=== PATIENT | male | born 1975 | race Caucasian/White ===

== ENCOUNTER 2019-12-26 05:45 | Inpatient (IN) | payer BC, OTHER ==
[~2019-12-26] VITALS: Ht 170.2 cm; Wt 81.2 kg
--- OUTSIDE RECORDS SUMMARY | 2019-12-26 05:48 | XMS REPORT ---
Author Author [facility] Organization [facility] Address Unknown Phone Unavailable Care Team Providers Care Costume Rental Clerk Name Role Phone Faisal Leong Unavailable Unavailable Problems This patient has no known problems. Allergies, Adverse Reactions, Alerts This patient has no known allergies or adverse reactions. Medications This patient has no known medications. Results Test Description Test Time Test Comments Text Results Atomic Results Result Comments Chest Pa And Lat (2 Views) 2018-06-07 13:24:00 [address] [place] [address] RADIOLOGY SERVICES REPORT Name: MARILYNN BRUNO Acct Number: [id number] :1975 Age:42 Sex:M Ord Phys: VIVEK LEONG Unit Number: [id number] [facility] [facility] [address]: Status: REG REF RAD Exam Date: 06/07/18 EXAM DESCRIPTION: RAD - Chest Pa And Lat (2 Views) - 06/07/2018 1:19 pm CLINICAL HISTORY: R06.2 Chest pain. COMPARISON: No comparisons FINDINGS: The lungs are clear. The heart is normal in size. No displaced fractures. IMPRESSION: No acute or concerning finding suspected. Signed By: Orlando Almanza MD Signed AT: 06/07/18 9019
[2019-12-26] MEDS ORDERED: ONDANSETRON HCL INJ 2MG/ML 2ML 2 MG/ML VIAL IV STA (05:54)
[2019-12-26] MEDS ORDERED: KETOROLAC TROMETHAMINE 30 MG/ML VIAL IV STA (05:54)
[2019-12-26 06:20] LABS: BASOPHILS # (AUTO) 0.1 (0.0-0.1); BASOPHILS % 0.3 % (0.0-1.0); EOSINOPHILS # (AUTO) 0.2 (0.0-0.4); EOSINOPHILS % 1.1 % (0.0-6.0); HEMATOCRIT 44.4 % (38.2-49.6); HEMOGLOBIN 15.2 g/dL (14.0-18.0); LYMPHOCYTES # (AUTO) 2.5 (1.0-3.2); LYMPHOCYTES % 13.3 % (18.0-39.1); MEAN CORPUSCULAR HEMOGLOBIN 32.8 pg (28-32); MEAN CORPUSCULAR HGB CONC 34.2 g/dL (31-35); MEAN CORPUSCULAR VOLUME 95.7 fL (81-99); MONOCYTES # (AUTO) 2.4 (0.2-0.8); MONOCYTES % 12.8 % (4.4-11.3); NEUTROPHILS # (AUTO) 13.3 (2.1-6.9); NEUTROPHILS % 71.6 % (38.7-80.0); PLATELET COUNT 252 x10e3/uL (140-360); RED BLOOD COUNT 4.64 x10e6/uL (4.3-5.7); RED CELL DISTRIBUTION WIDTH 12.4 % (11.7-14.4)
--- NOTE | 2019-12-26 06:33 | Diagnostic Imaging Report ---
EXAM: CT Abdomen and Pelvis WITHOUT contrast INDICATION: ^LEFT FLANK PAIN STONE PROTOCOL ^[id number] ^[id number] ^Y COMPARISON: None. TECHNIQUE: Abdomen and pelvis were scanned utilizing a multidetector helical scanner from the lung base to the pubic symphysis without administration of IV contrast. Absence of intravenous contrast decreases sensitivity for detection of focal lesions and vascular pathology. Coronal and sagittal reformations were obtained. Stone protocol is performed. IV CONTRAST: None ORAL CONTRAST: None COMPLICATIONS: None RADIATION DOSE: Total DLP: 370 mGy*cm Estimated effective dose: (DLP x 0.015 x size factor) mSv CTDIvol has been reviewed. It is below the limits set by the Radiation Protocol Committee (RPC). Dose modulation, iterative reconstruction, and/or weight based adjustment of the mA/kV was utilized to reduce the radiation dose to as low as reasonably achievable. FINDINGS: LINES and TUBES: None. LOWER THORAX: Unremarkable HEPATOBILIARY: Subtle 2.2 cm hypodense lesion of the right hepatic lobe (image 43). Too small to characterize 7 mm hypodense lesion of the right inferior hepatic lobe, likely a cyst. GALLBLADDER: No radio-opaque stones or sludge. No wall thickening. SPLEEN: No splenomegaly. PANCREAS: No focal masses or ductal dilatation. ADRENALS: No adrenal nodules KIDNEYS/URETERS: Few nonobstructing right intrarenal calculi, largest 4 mm. No right hydronephrosis. Moderate left renal edema and left perinephric inflammation. Mild left hydronephrosis. 4 mm stone within the left distal ureter (image 159). GI TRACT: No abnormal distention, wall thickening, or evidence of bowel obstruction. Colonic diverticulosis. Appendix is normal. PELVIC ORGANS/BLADDER: Unremarkable. LYMPH NODES: No lymphadenopathy. VESSELS: Unremarkable. PERITONEUM / RETROPERITONEUM: No free air or fluid. BONES: Unremarkable. SOFT TISSUES: Small bilateral fat-containing inguinal hernias. IMPRESSION: 1. Obstructing 4 mm stone within the left distal ureter results in mild left hydronephrosis and moderate left perinephric inflammation. 2. Few small nonobstructing right intrarenal calculi, largest 4 mm. 3. Incidental 2.2 cm hypodense solid lesion within the right hepatic lobe. This most likely represents a hemangioma or other benign lesion; however, it is incompletely characterized on this noncontrast examination. Signed by: Rafi Olmos MD on 12/26/2019 6:29 AM
[2019-12-26 06:35] LABS: ANION GAP 11.1 mmol/L (8-16); BLOOD UREA NITROGEN 15 mg/dL (7-26); BUN/CREATININE RATIO 14 (6-25); CALCIUM 9.1 mg/dL (8.4-10.2); CARBON DIOXIDE 26 mmol/L (22-29); CHLORIDE 106 mmol/L (98-107); EST GLOMERULAR FILTRATION RATE > 60 ML/MIN (60-); GLUCOSE 95 mg/dL (74-118); POTASSIUM 4.1 mmol/L (3.5-5.1); SODIUM 139 mmol/L (136-145)
[2019-12-26 06:39] LABS: BILIRUBIN,URINE NEGATIVE (NEGATIVE); CLARITY,URINE CLEAR (CLEAR); COLOR,URINE YELLOW (YELLOW); KETONES,URINE NEGATIVE (NEGATIVE); LEUKOCYTE ESTERASE ,URINE NEGATIVE (NEGATIVE); NITRITE,URINE NEGATIVE (NEGATIVE); PROTEIN,URINE DIPSTICK NEGATIVE (NEGATIVE); URINE UROBILINOGEN 0.2 mg/dL (0.2 - 1)
[2019-12-26 06:42] LABS: BACTERIA,URINE FEW /HPF; EPITHELIAL CELLS,URINE RARE /LPF; RBC,URINE >50 /HPF (0-5); WBC,URINE (MAN) 0-5 /HPF (0-5)
[2019-12-26] MEDS ORDERED: CEFTRIAXONE SOD 1 GM/NS 50 ML 50 ML IV ONE ×2 (06:42→06:45)
[2019-12-26] MEDS ORDERED: ONDANSETRON HCL INJ 2MG/ML 2ML 2 MG/ML VIAL IV PRN (06:45)
[2019-12-26] MEDS: CEFTRIAXONE SOD 1 GM/NS 50 ML 50 ML IV SCH (07:37)
[2019-12-26] MEDS: HYDROMORPHONE 1MG/1ML INJ IV PRN ×6 (07:50→23:48)
[2019-12-26 08:27] LABS: EOSINOPHILS % (MANUAL) 1 % (0-7); LYMPHOCYTES % (MANUAL) 14 % (19-48); MONOCYTES % (MANUAL) 16 % (3.4-9.0); NEUTROPHILS % (MANUAL) 61 % (40-74)
[2019-12-26 08:28] LABS: PLATELET ESTIMATE ADEQUATE; PLATELET MORPHOLOGY COMMENT NORMAL; RBC MORPHOLOGY COMMENT NORMAL
[2019-12-26 08:54] VITALS: BP 121/85
[2019-12-26] MEDS: SENNOSIDES 8.6 MG TAB PO SCH ×2 (10:15→16:03)
[2019-12-26] MEDS: SODIUM CHLORIDE 0.9% 1000ML 1,000 ML IV SCH ×2 (10:46→20:24)
--- NOTE | 2019-12-26 11:30 | History and Physical ---
CHIEF COMPLAINT: Left flank pain with left renal stone. HISTORY OF PRESENT ILLNESS: The patient is a 44-year-old male, never had any significant medical history or kidney stone, came in with obstructive 4 mm stone within the left distal ureter and resulted in mild left hydronephrosis, moderate left perinephric inflammation area. The patient also has leukocytosis of 18,000. On CT scan, the patient also has a few small nonobstructive right intrarenal calculi, largest of 4 mm as well. Incidentally finding of 2.2 cm hypodense solid lesion within the right hepatic lobe. This could be from hemangioma or other benign lesion. The patient had a noncontrast CT. I told patient that he will need either a contrast CT scan Abdomen or MRI to further evaluate this lesion once his current problem resolved to prevent risk of renal failure or injury from IV contrst. Therefore, patient will need to follow up later with his PCP. The patient is otherwise stable. Discussed with the patient at this time. He is going to get fluid IV antibiotic and pain control. Dr. Ángel Talbot already seen the patient. PAST MEDICAL HISTORY: Noncontributory. SOCIAL HISTORY: The patient is a [id number] smoker. He is also a moderate alcohol drinker. ALLERGIES: NO KNOWN ALLERGIES. HOME MEDICATIONS: None. PHYSICAL EXAMINATION: VITAL SIGNS: Temperature is 98, blood pressure is 139/102, pulse rate is 65, respirations 18. GENERAL: The patient is not in acute distress. He is awake. HEENT: Normocephalic and atraumatic. Anicteric. NECK: Supple grossly. PULMONARY: Clear. CARDIOVASCULAR: Regular rate and rhythm. ABDOMEN: Soft. EXTREMITIES: No cyanosis or edema. NEUROLOGIC: No gross focal deficit. LABORATORY DATA: Sodium is 139, potassium 4.1, chloride 106, bicarb 26, BUN 15, creatinine 1.1, glucose 95. WBC is 18.6, hemoglobin 15.2, hematocrit 44.4, and platelets is 252. IMPRESSION: 1. Left hydronephrosis with left perinephric inflammation secondary to obstructive 4 mm ureteral stone. 2. Leukocytosis, reactive. 3. Incidental finding of 2.2 cm right lower liver solid lesion on noncontrast CT. The patient will need to have that follow up as an outpatient. Discussed with the patient. We will monitor the patient closely. IV antibiotics. Discussed with patient closely. IV antibiotic and IV fluid pain control. We will follow up with Dr. Ángel Talbot on planning for this patient with obstructive kidney stone. MD NORMAN Macedo/GAIL /[id number] MISHA
[2019-12-26 11:44] VITALS: BP 134/91
[2019-12-26] MEDS ORDERED: ONDANSETRON HCL INJ 2MG/ML 2ML 2 MG/ML VIAL ONE (14:47)
[2019-12-26] MEDS ORDERED: LIDOCAINE HCL 2% LOCAL INJ 5 ML SDV VIAL INJ ONE (14:47)
[2019-12-26] MEDS ORDERED: DEXAMETHASONE SOD PHOS INJ 4 MG/ML VIAL ONE (14:47)
[2019-12-26] MEDS ORDERED: SEVOFLURANE INHAL SOLN 250 ML PEN BTL ONE (14:47)
[2019-12-26] MEDS ORDERED: PROPOFOL IV EMULSION 10 MG/ML 20 ML VIAL ONE (14:47)
[2019-12-26] MEDS: HYDROCODONE/APAP 7.5MG-325MG 1 EA TAB PO PRN (15:00)
[2019-12-26 16:00] VITALS: BP 123/86
[2019-12-26] MEDS: KETOROLAC TROMETHAMINE 30 MG/ML VIAL IV PRN (18:15)
[2019-12-26 20:00] VITALS: BP 120/81
[2019-12-27] VITALS (9 sets, daily range): BP systolic 111–141; BP diastolic 60–78
[2019-12-27] MEDS: HYDROMORPHONE 1MG/1ML INJ IV PRN ×7 (02:56→21:53)
[2019-12-27] MEDS: KETOROLAC TROMETHAMINE 30 MG/ML VIAL IV PRN ×3 (03:29→17:53)
[2019-12-27 06:19] LABS: BASOPHILS % 0.2 % (0.0-1.0); EOSINOPHILS # (AUTO) 0.1 (0.0-0.4); EOSINOPHILS % 1.1 % (0.0-6.0); HEMATOCRIT 36.6 % (38.2-49.6); HEMOGLOBIN 12.1 g/dL (14.0-18.0); LYMPHOCYTES # (AUTO) 3.5 (1.0-3.2); LYMPHOCYTES % 28.3 % (18.0-39.1); MEAN CORPUSCULAR HGB CONC 33.1 g/dL (31-35); MEAN CORPUSCULAR VOLUME 96.8 fL (81-99); MONOCYTES # (AUTO) 1.9 (0.2-0.8); MONOCYTES % 15.7 % (4.4-11.3); NEUTROPHILS # (AUTO) 6.6 (2.1-6.9); NEUTROPHILS % 54.1 % (38.7-80.0); PLATELET COUNT 180 x10e3/uL (140-360); RED BLOOD COUNT 3.78 x10e6/uL (4.3-5.7); RED CELL DISTRIBUTION WIDTH 12.4 % (11.7-14.4)
[2019-12-27] MEDS: CEFTRIAXONE SOD 1 GM/NS 50 ML 50 ML IV SCH (06:39)
[2019-12-27] MEDS: SODIUM CHLORIDE 0.9% 1000ML 1,000 ML IV SCH ×2 (06:39→16:52)
[2019-12-27 06:42] LABS: ANION GAP 7.3 mmol/L (8-16); BLOOD UREA NITROGEN 12 mg/dL (7-26); BUN/CREATININE RATIO 15 (6-25); CARBON DIOXIDE 25 mmol/L (22-29); CHLORIDE 109 mmol/L (98-107); CREATININE, SERUM 0.82 mg/dL (0.72-1.25); EST GLOMERULAR FILTRATION RATE > 60 ML/MIN (60-); GLUCOSE 89 mg/dL (74-118); POTASSIUM 4.3 mmol/L (3.5-5.1); SODIUM 137 mmol/L (136-145)
[2019-12-27] MEDS: HYDROCODONE/APAP 7.5MG-325MG 1 EA TAB PO PRN ×4 (07:55→19:55)
[2019-12-27] MEDS: SENNOSIDES 8.6 MG TAB PO SCH ×2 (08:03→16:52)
--- NOTE | 2019-12-27 09:59 | Consultation ---
DATE OF CONSULTATION: 12/26/2019 Urology Consultation Consultation is called by Dr. Singh. CHIEF COMPLAINT AND REASON FOR CONSULTATION: Kidney stones. HISTORY OF PRESENT ILLNESS: Mr. Alarcon is a 44-year-old male, admitted to hospital with sharp, severe left-sided flank pain. Denied dysuria. Denied gross hematuria. PAST MEDICAL HISTORY: Denied. MEDICATIONS: Please see MAR. ALLERGIES: NKDA. SOCIAL HISTORY: Denied smoking or drinking. FAMILY HISTORY: Denied urologic stones or malignancies. REVIEW OF SYSTEMS: Noncontributory other than problems mentioned above for 12-organ systems. PHYSICAL EXAMINATION: GENERAL: Middle-aged male, in no distress. VITAL SIGNS: Temperature 98.1, pulse 69, respirations 17, and blood pressure 161/101. HEENT: Sclerae anicteric. NECK: Supple. BACK: Without costovertebral angle tenderness bilaterally. ABDOMEN: Soft, it is nontender, it is nondistended. No palpable mass. No palpable hernias. No palpable adenopathy. : Normal male external genitalia. EXTREMITIES: No edema. NEURO: Moves all 4 extremities. PSYCH: Alert and mood appropriate. SKIN: Intact. Normal color. PERTINENT LABORATORY DATA: CT scan revealing a 4 mm left distal ureteral calculus with left hydronephrosis, multiple right renal calculi less than equal to 4 mm. 2.27 cm liver mass. Urinalysis greater than 50 reds, 0 to 5 whites. CBC; normal except white blood cell count 19,600. Chem-7 revealing sodium 139, potassium 4.1, chloride 106, bicarb 26, BUN 15, creatinine 1.1, glucose 95. IMPRESSION: 1. Left hydronephrosis. 2. Left ureteral calculus. 3. Right renal calculus. 4. Microscopic hematuria. 5. Renal colic. 6. Hypertension. 7. Leukocytosis. PLAN: We will employ a trial of passage. Should this fail, the patient will need stenting. Thank you for allowing me to participate in the care of your patient. We will be happy to follow along with you. Ángel Talbot MD ES/MODL /[id number] cc: Parag Singh MD
--- NOTE | 2019-12-27 15:57 | Diagnostic Imaging Report ---
EXAM: ABDOMEN-1VIEW (KUB) DATE: 12/27/2019 3:20 PM INDICATION: Kidney stone COMPARISON: CT abdomen/pelvis without contrast from 12/26/2019 FINDINGS/IMPRESSION: Bowel gas partially obscures the renal shadows limiting evaluation. No radiographically evident renal calculi are visualized. Phleboliths are noted within the pelvis with a 4 mm calcification identified within the left hemipelvis which may represent the known distal left ureteral stone. No other abnormal intra-abdominal calcifications are appreciated. Bowel gas pattern is nonobstructive. No acute osseous abnormality is identified. Signed by: Dr. Bertrand Nixon MD on 12/27/2019 3:54 PM
[2019-12-28] VITALS (7 sets, daily range): BP systolic 107–141; BP diastolic 66–90
[2019-12-28] MEDS: HYDROCODONE/APAP 7.5MG-325MG 1 EA TAB PO PRN ×4 (00:13→18:33)
[2019-12-28] MEDS: HYDROMORPHONE 1MG/1ML INJ IV PRN ×8 (01:10→22:48)
[2019-12-28] MEDS: KETOROLAC TROMETHAMINE 30 MG/ML VIAL IV PRN ×3 (03:48→20:11)
[2019-12-28] MEDS: SODIUM CHLORIDE 0.9% 1000ML 1,000 ML IV SCH ×2 (04:40→14:16)
[2019-12-28] MEDS: CEFTRIAXONE SOD 1 GM/NS 50 ML 50 ML IV SCH (05:22)
[2019-12-28] MEDS ORDERED: IOPAMIDOL 300MG/ML 50ML INFUS..BTL IV ONE (07:54)
[2019-12-28] MEDS: SENNOSIDES 8.6 MG TAB PO SCH ×2 (08:44→16:44)
--- NOTE | 2019-12-28 10:35 | Diagnostic Imaging Report ---
Exam: KUB - 2 views Indication: Urinary calculus Comparison: KUB of 12/27/2019 Findings: No radiographic apparent urinary calculi. Specifically, the calcific density adjacent to a left pelvic phlebolith seen on prior KUB of 12/27/2019 and believed to correspond to the distal ureteral calculus seen on the CT of 12/26/2019 is not apparent on these radiographs. No acute osseous injury. Nonobstructive bowel gas pattern. No free air. Impression: Likely interval resolution of left distal ureteral calculus which is no longer visualized on this radiograph compared to the KUB of 12/27/[address] of 12/26/2019. No new radiographically apparent urinary calculi. Signed by: Phoenix Nevarez MD on 12/28/2019 10:32 AM
[2019-12-29] VITALS (8 sets, daily range): BP systolic 123–150; BP diastolic 60–94
[2019-12-29] MEDS: SODIUM CHLORIDE 0.9% 1000ML 1,000 ML IV SCH ×3 (02:33→21:00)
[2019-12-29] MEDS: HYDROMORPHONE 1MG/1ML INJ IV PRN ×7 (02:33→23:49)
[2019-12-29] MEDS: CEFTRIAXONE SOD 1 GM/NS 50 ML 50 ML IV SCH (05:55)
[2019-12-29] MEDS: HYDROCODONE/APAP 7.5MG-325MG 1 EA TAB PO PRN ×5 (07:34→22:40)
[2019-12-29] MEDS: SENNOSIDES 8.6 MG TAB PO SCH ×2 (08:05→16:54)
[2019-12-29] MEDS ORDERED: ONDANSETRON HCL 4 MG ORAL DISINTEGRATING TAB PO PRN (16:15)
[2019-12-29] MEDS: KETOROLAC TROMETHAMINE 30 MG/ML VIAL IV PRN ×3 (17:38→22:40)
[2019-12-30] VITALS: BP 152/90
--- NOTE | 2019-12-30 03:06 | Discharge Summary ---
FINAL DIAGNOSES: 1. Left hydronephrosis secondary to non-passing ureteral stone, status post left ureteral stent placement. 2. Gross hematuria, urinary tract infection, improving post stent placement. 3. Incidental lesion lesion. Need outpatient follow up. Discussed with patient at length. SUMMARY: The patient 44-year-old male, came in with flank pain. The patient's CT scan showed left hydronephrosis with 4 mm stone and the patient failed conservative measure with hoping that the stone will pass, which did not. The patient also with elevated WBC of 18.6,000. The patient underwent cystoscopy and a left urethral stent placement. The patient has some hematuria, but much improved. The patient will continue with oral antibiotic, Tylenol No. 3, Zofran as needed. Cipro 5 mg twice a day for 5 days. The patient is otherwise stable. He will go home today. Follow up as an outpatient for any further adjustment of his medication. The patient will need stone management and ureteral stent removal when appropriate. I advised the patient to follow up as instructed. Patient will also need follow up IV contrast CT scan abdomen or MRI to evaluate liver lesion outpatient as discussed with patient multiple times. Please see H/P. MD NORMAN Macedo/GAIL /[id number] MTDD
[2019-12-30 04:00] VITALS: BP 132/88
[2019-12-30] MEDS: HYDROMORPHONE 1MG/1ML INJ IV PRN (04:30)
[2019-12-30] MEDS: KETOROLAC TROMETHAMINE 30 MG/ML VIAL IV PRN (04:40)
[2019-12-30] MEDS: SODIUM CHLORIDE 0.9% 1000ML 1,000 ML IV SCH (05:38)
[2019-12-30 05:52] LABS: BASOPHILS # (AUTO) 0.1 (0.0-0.1); BASOPHILS % 0.6 % (0.0-1.0); EOSINOPHILS # (AUTO) 0.3 (0.0-0.4); EOSINOPHILS % 2.2 % (0.0-6.0); HEMATOCRIT 37.5 % (38.2-49.6); HEMOGLOBIN 12.5 g/dL (14.0-18.0); LYMPHOCYTES # (AUTO) 4.9 (1.0-3.2); LYMPHOCYTES % 42.3 % (18.0-39.1); MEAN CORPUSCULAR HEMOGLOBIN 31.6 pg (28-32); MEAN CORPUSCULAR HGB CONC 33.3 g/dL (31-35); MEAN CORPUSCULAR VOLUME 94.9 fL (81-99); MONOCYTES # (AUTO) 1.5 (0.2-0.8); MONOCYTES % 12.8 % (4.4-11.3); NEUTROPHILS # (AUTO) 4.9 (2.1-6.9); NEUTROPHILS % 41.5 % (38.7-80.0); PLATELET COUNT 237 x10e3/uL (140-360); RED BLOOD COUNT 3.95 x10e6/uL (4.3-5.7); RED CELL DISTRIBUTION WIDTH 11.8 % (11.7-14.4)
[2019-12-30] MEDS: CEFTRIAXONE SOD 1 GM/NS 50 ML 50 ML IV SCH (06:21)
[2019-12-30 06:25] LABS: ANION GAP 9.2 mmol/L (8-16); BLOOD UREA NITROGEN 13 mg/dL (7-26); BUN/CREATININE RATIO 18 (6-25); CALCIUM 8.7 mg/dL (8.4-10.2); CARBON DIOXIDE 27 mmol/L (22-29); CHLORIDE 109 mmol/L (98-107); CREATININE, SERUM 0.72 mg/dL (0.72-1.25); EST GLOMERULAR FILTRATION RATE > 60 ML/MIN (60-); GLUCOSE 87 mg/dL (74-118); POTASSIUM 4.2 mmol/L (3.5-5.1); SODIUM 141 mmol/L (136-145)
[2019-12-30 08:00] VITALS: BP 147/94
[2019-12-30] MEDS: HYDROCODONE/APAP 7.5MG-325MG 1 EA TAB PO PRN (08:11)
[2019-12-30] MEDS: SENNOSIDES 8.6 MG TAB PO SCH (08:12)
[2019-12-30 08:13] VITALS: BP 147/94
--- NOTE | 2019-12-30 12:53 | Operative Report ---
DATE OF PROCEDURE: 12/28/2019 SURGEON: Ángel Talbot MD PREOPERATIVE DIAGNOSES: 1. Left-sided hydronephrosis. 2. Microscopic hematuria. POSTOPERATIVE DIAGNOSES: 1. Left-sided hydronephrosis. 2. Microscopic hematuria. PROCEDURES: 1. Cystourethroscopy with left ureteral catheterization and placement of an indwelling left ureteral stent (entirely separate procedure for left hydronephrosis). 2. Cystourethroscopy with right ureteral catheterization and right retrograde pyelogram (separate procedure for microscopic hematuria). 3. Supervision of fluoroscopy. 4. Interpretation of retrograde pyelography. ANESTHESIA: General. ESTIMATED BLOOD LOSS: Minimal. COMPLICATIONS: None. INDICATIONS: Mr. Alarcon is a very pleasant 44-year-old male with a history of a 4 mm x 4 mm left ureteral calculus. The patient has elevated white count, despite antibiotics it did not come down. He and I had a long discussion about alternatives, risks, and benefits including doing nothing, stent placement, and percutaneous nephrostomy. He voiced understanding of the options, alternatives, risks, and benefits and elected to proceed. PROCEDURE IN DETAIL: After informed consent was obtained, the patient was taken to the operative suite, placed supine on the operative table, underwent general anesthesia by Anesthesia Service, placed in dorsal lithotomy position and sterilely prepped and draped for cystoscopy. A 21-Thai cystoscope was inserted per urethra and normal urethra was noted. Panendoscopy of bladder revealed no tumors, no stones. The right ureteral orifice was seen to efflux urine. Bilateral retrograde pyelograms performed with a 5-Thai open-ended catheter. Right was normal. Left revealed a 4 x 4 mm distal ureteral calculus with proximal hydronephrosis. Upon inserting a guidewire alongside the stone, plethora reported and material shot out the ureteral orifice, seen on image #2. A ureteral stent was then deployed with a coil in the renal pelvis and a coil in the patient's bladder. Purulent material continue to jetting out of the stent. The bladder was then drained. The patient was awakened from anesthesia and transported to recovery room in excellent condition. Supervision of fluoroscopy and interpretation of retrograde pyelography: I was present for the entire procedure and supervised fluoroscopy. There was no radiologist present. Attention was turned to the left and right ureteral orifice, which have catheterized with a 5-Thai open-ended catheter. Retrograde pyelogram was performed on the right side revealing delicate ureter, delicate pelvocaliceal systems. On left side, a 4 x 4 distal ureteral calculus with proximal hydronephrosis. Postoperative views on left side revealed stent in adequate position. MD MAME Song/GAIL /[id number]
== END 2019-12-30 10:18 | disposition home or self-care (01) | DRG 661 ==
LOC: ER 05:45 → ERHOLD 06:43 → MED/SURG 08:48 → OBSVTOIN 12-27 09:07
PROVIDERS: ADMIT Internal Medicine; ATTEND Internal Medicine
PROC: 0TC78ZZ Extirpation of Matter from Left Ureter, Via Natural or Artificial Opening Endoscopic (ICD-10-PCS; 2019-12-28)
PROC: BT141ZZ Fluoroscopy of Kidneys, Ureters and Bladder using Low Osmolar Contrast (ICD-10-PCS; 2019-12-28)
PROC: 0T778DZ Dilation of Left Ureter with Intraluminal Device, Via Natural or Artificial Opening Endoscopic (ICD-10-PCS; principal; 2019-12-28 08:00)
DX: N13.6 Pyonephrosis (principal); K76.9 Liver disease, unspecified; I10 Essential (primary) hypertension; D64.9 Anemia, unspecified; D72.829 Elevated white blood cell count, unspecified
CPT/HCPCS: 36415; 74018; 74176; 74420; 80048; 81001; 85025; 87086; 87635; 96360; 96361; 99284; C1758; C1769; C2617; G0378; J0696; J1100; J1170; J1885; J2001; J2405; J7030

== ENCOUNTER → 2020-01-13 | Day surgery (SDC) | payer BC, OTHER ==
[~2020-01-13] MED LIST: CEFTRIAXONE SOD 1 GM/NS 50 ML 50 ML IV ONE; DEXAMETHASONE SOD PHOS INJ 4 MG/ML VIAL ONE; ETOMIDATE 2 MG/ML 10 ML INJ IV ONE; FENTANYL CITRATE/PF 100MCG/2 ML INJ ONE; IOPAMIDOL 300MG/ML 50ML INFUS..BTL IV ONE; LIDOCAINE HCL 2% LOCAL INJ 5 ML SDV VIAL INJ ONE; ONDANSETRON HCL INJ 2MG/ML 2ML 2 MG/ML VIAL ONE; RITALIN10 MG PO; SEVOFLURANE INHAL SOLN 250 ML PEN BTL ONE
[2020-01-13 10:30] VITALS: BP 145/95
--- NOTE | 2020-01-13 13:38 | Operative Report ---
DATE OF PROCEDURE: 01/13/2020 SURGEON: Ángel Talbot MD PREOPERATIVE DIAGNOSES: 1. Indwelling left ureteral stent. 2. Left ureteral calculus. POSTOPERATIVE DIAGNOSES: 1. Indwelling left ureteral stent. 2. Left ureteral calculus. PROCEDURES: 1. Cystourethroscopy with complicated removal of left indwelling stent (entirely separate procedure complicated secondary to the patient anatomy.). 2. Left-sided ureteroscopy with laser lithotripsy (entirely separate procedure for diagnosis of left ureteral calculus.). 3. Left-sided ureteroscopy with stone extraction (entirely separate procedure with explicit purpose of sending stones for analysis, not required for laser lithotripsy). 4. Supervision of fluoroscopy for ureteroscopy and stent removal. ANESTHESIA: General. ESTIMATED BLOOD LOSS: Minimal. COMPLICATIONS: None. INDICATIONS FOR PROCEDURE: Mr. Alarcon is a very pleasant 44-year-old male with a history of obstructing left ureteral calculus, status post stent placement. He and I had a long discussion of alternatives, risks, and benefits of doing nothing, shock wave lithotripsy, ureteroscopy, percutaneous surgery, or open surgery. He voiced understanding of the options, alternatives, the risks, and benefits. He elected to proceed with ureteroscopy. PROCEDURE IN DETAIL: After informed consent was obtained, the patient was taken to the operative suite, placed supine on the operating table, underwent general anesthesia by the Anesthesia Service, placed in dorsal lithotomy position, and sterilely prepped and draped for cystoscopy. There was trilobar prostatic hypertrophy. Stent was seen in the left ureteral orifice. The guidewire was inserted alongside the stent. Stent was removed with moderate difficulty secondary to obstruction of stone. Ureteroscope was advanced to the level of stone. Utilizing 365 micron laser fiber, the stone was broken in multiple small fragments, several of which were extracted and passed off the table as specimens with explicit purpose of sending stones for analysis, not required for laser lithotripsy. At this time with no other stones seen under fluoroscopic survey, bladder was drained. The patient was awakened from anesthesia and transported to recovery room in excellent condition. Supervision of fluoroscopy for ureteroscopy and stent removal portions: I was present for the entire procedure and supervised fluoroscopy. There was no radiologist present. Dosage per supply chain technician. MD MAME Song/CAESARL /[id number]
== END | disposition home or self-care (01) ==
LOC: OR 07:35
PROVIDERS: ATTEND Urology
DX: N20.1 Calculus of ureter (principal); Z46.6 Encounter for fitting and adjustment of urinary device; N39.0 Urinary tract infection, site not specified; N13.30 Unspecified hydronephrosis; Z01.810 Encounter for preprocedural cardiovascular examination; Z01.812 Encounter for preprocedural laboratory examination; Z11.59 Encounter for screening for other viral diseases
CPT/HCPCS: 52353; 87635; 88300; 93005; C1758; C1769; J0696; J1100; J2001; J2405; J3010; Q9967; 76000

== ENCOUNTER 2021-11-27 21:33 | Inpatient (IN) | payer BC ==
[~2021-11-27] VITALS: Ht 170.2 cm; Wt 83.5 kg
[~2021-11-27 21:33] MED LIST changes: -CEFTRIAXONE SOD 1 GM/NS 50 ML 50 ML IV ONE; -DEXAMETHASONE SOD PHOS INJ 4 MG/ML VIAL ONE; -ETOMIDATE 2 MG/ML 10 ML INJ IV ONE; -FENTANYL CITRATE/PF 100MCG/2 ML INJ ONE; -IOPAMIDOL 300MG/ML 50ML INFUS..BTL IV ONE; -LIDOCAINE HCL 2% LOCAL INJ 5 ML SDV VIAL INJ ONE; -ONDANSETRON HCL INJ 2MG/ML 2ML 2 MG/ML VIAL ONE; -SEVOFLURANE INHAL SOLN 250 ML PEN BTL ONE
[2021-11-27] MEDS ORDERED: ONDANSETRON HCL INJ 2MG/ML 2ML 2 MG/ML VIAL IV STA (21:54)
[2021-11-27 21:57] LABS: BASOPHILS # (AUTO) 0.1 (0.0-0.1); BASOPHILS % 0.4 % (0.0-1.0); EOSINOPHILS # (AUTO) 0.2 (0.0-0.4); EOSINOPHILS % 1.2 % (0.0-6.0); HEMATOCRIT 53.9 % (38.2-49.6); HEMOGLOBIN 19.3 g/dL (14.0-18.0); LYMPHOCYTES # (AUTO) 6.3 (1.0-3.2); LYMPHOCYTES % 32.6 % (18.0-39.1); MEAN CORPUSCULAR HEMOGLOBIN 33.4 pg (28-32); MEAN CORPUSCULAR HGB CONC 35.8 g/dL (31-35); MEAN CORPUSCULAR VOLUME 93.4 fL (81-99); MONOCYTES # (AUTO) 1.1 (0.2-0.8); MONOCYTES % 5.6 % (4.4-11.3); NEUTROPHILS # (AUTO) 11.6 (2.1-6.9); NEUTROPHILS % 59.5 % (38.7-80.0); PLATELET COUNT 295 x10e3/uL (140-360); RED BLOOD COUNT 5.77 x10e6/uL (4.3-5.7); RED CELL DISTRIBUTION WIDTH 11.4 % (11.7-14.4)
[2021-11-27 21:59] LABS: CLARITY,URINE SL CLOUDY (CLEAR); COLOR,URINE YELLOW (YELLOW); KETONES,URINE NEGATIVE (NEGATIVE); LEUKOCYTE ESTERASE ,URINE NEGATIVE (NEGATIVE); NITRITE,URINE NEGATIVE (NEGATIVE); PROTEIN,URINE DIPSTICK 2+ (NEGATIVE); URINE UROBILINOGEN 0.2 mg/dL (0.2 - 1)
[2021-11-27] MEDS ORDERED: SODIUM CHLORIDE 0.9% 1000ML 1,000 ML IV ONE (22:00)
[2021-11-27] MEDS ORDERED: FENTANYL CITRATE/PF 100MCG/2 ML INJ IV ONE (22:00)
[2021-11-27] MEDS: PIPERACILLIN/TAZOBACTAM 3.375 GM in SODIUM CHLORIDE 0.9% 50ML 50 ML IV ONE ×2 (22:04→22:20)
[2021-11-27] MEDS ORDERED: SODIUM CHLORIDE 0.9% 1000ML 1,000 ML ONE (22:06)
[2021-11-27] MEDS ORDERED: FENTANYL CITRATE/PF 100MCG/2 ML INJ ONE (22:08)
[2021-11-27 22:09] LABS: BACTERIA,URINE FEW /HPF; CALCIUM OXALATE CRYSTALS,UR MANY (FEW); EPITHELIAL CELLS,URINE FEW /LPF; RBC,URINE 0-5 /HPF (0-5); WBC,URINE (MAN) 0-5 /HPF (0-5)
[2021-11-27 22:10] LABS: AMPHETAMINES SCREEN,URINE NEGATIVE (NEGATIVE); BENZODIAZEPINES SCREEN,URINE NEGATIVE (NEGATIVE); PHENCYCLIDINE SCREEN,URINE NEGATIVE (NEGATIVE)
[2021-11-27 22:14] LABS: ALBUMIN 4.2 g/dL (3.5-5.0); ALBUMIN/GLOBULIN RATIO 1.3 (0.8-2.0); ANION GAP 14.8 mmol/L (8-16); CALCIUM 9.3 mg/dL (8.4-10.2); CREATININE, SERUM 1.11 mg/dL (0.72-1.25); POTASSIUM 3.8 mmol/L (3.5-5.1)
[2021-11-27 22:21] LABS: CREATINE KINASE MB 1.7 ng/mL (0-5.0)
[2021-11-27 22:24] LABS: AMYLASE 77 U/L (25-125); LIPASE 52 U/L (8-78)
[2021-11-27] MEDS ORDERED: Morphine 4mg Syringe 4 MG/ML INJ IV ONE (23:00)
[2021-11-27] MEDS ORDERED: SODIUM CHLORIDE 0.9% 50ML 50 ML ONE (23:02)
[2021-11-27] MEDS ORDERED: IOPAMIDOL 370 MG/ML 100 ML INFUS..BTL INJ ONE (23:02)
[2021-11-27] MEDS ORDERED: BENZOCAINE/TETRACAINE/BUTAMBEN AERO SPRAY 56 GM CAN TOP ONE (23:30)
[2021-11-28] VITALS (10 sets, daily range): BP systolic 128–156; BP diastolic 90–111
[2021-11-28] MEDS ORDERED: ACETAMINOPHEN 325 MG TAB PO PRN
[2021-11-28] MEDS: SODIUM CHLORIDE 0.9% 1000ML 1,000 ML IV SCH ×4 (00:30→23:41)
[2021-11-28] MEDS ORDERED: ACETAMINOPHEN 1000 MG/100 ML IV PRN (01:30)
[2021-11-28] MEDS: ONDANSETRON HCL INJ 2MG/ML 2ML 2 MG/ML VIAL IV PRN ×3 (02:21→19:50)
[2021-11-28] MEDS: Morphine 4mg Syringe 4 MG/ML INJ IV PRN ×5 (02:54→19:50)
[2021-11-28] MEDS: PIPERACILLIN/TAZOBACTAM 3.375 GM in SODIUM CHLORIDE 0.9% 50ML 50 ML IV SCH ×3 (06:00→17:58)
[2021-11-28] MEDS ORDERED: AMOXICILLIN500 MG PO (06:03)
[2021-11-28 07:34] LABS: BASOPHILS # (AUTO) 0.1 (0.0-0.1); BASOPHILS % 0.3 % (0.0-1.0); HEMATOCRIT 52.9 % (38.2-49.6); HEMOGLOBIN 18.3 g/dL (14.0-18.0); LYMPHOCYTES # (AUTO) 0.9 (1.0-3.2); LYMPHOCYTES % 3.7 % (18.0-39.1); MEAN CORPUSCULAR HEMOGLOBIN 33.1 pg (28-32); MEAN CORPUSCULAR HGB CONC 34.6 g/dL (31-35); MEAN CORPUSCULAR VOLUME 95.7 fL (81-99); MONOCYTES # (AUTO) 2.7 (0.2-0.8); MONOCYTES % 10.7 % (4.4-11.3); NEUTROPHILS # (AUTO) 21.1 (2.1-6.9); NEUTROPHILS % 84.6 % (38.7-80.0); PLATELET COUNT 245 x10e3/uL (140-360); RED BLOOD COUNT 5.53 x10e6/uL (4.3-5.7); RED CELL DISTRIBUTION WIDTH 11.8 % (11.7-14.4)
[2021-11-28 07:54] LABS: ALBUMIN 3.6 g/dL (3.5-5.0); ALBUMIN/GLOBULIN RATIO 1.3 (0.8-2.0); ANION GAP 14.3 mmol/L (8-16); CALCIUM 7.9 mg/dL (8.4-10.2); CREATININE, SERUM 1.01 mg/dL (0.72-1.25); POTASSIUM 4.3 mmol/L (3.5-5.1)
[2021-11-28 08:46] LABS: BAND NEUTROPHILS % (MANUAL) 4 %; LYMPHOCYTES % (MANUAL) 5 % (19-48); MONOCYTES % (MANUAL) 5 % (3.4-9.0); NEUTROPHILS % (MANUAL) 86 % (40-74); PLATELET ESTIMATE ADEQUATE; PLATELET MORPHOLOGY COMMENT NORMAL; RBC MORPHOLOGY COMMENT NORMAL
[2021-11-28] MEDS ORDERED: SODIUM CHLORIDE 0.9% 500ML 500 ML IV ONE (09:45)
[2021-11-28] MEDS ORDERED: MAGNESIUM SULF 1GRAM/DEXTROSE 100 ML IV ONE (10:30)
[2021-11-28] MEDS ORDERED: SODIUM CHLORIDE 0.9% 1000ML 1,000 ML IV ONE ×2 (13:35→14:15)
[2021-11-29] VITALS (7 sets, daily range): BP systolic 135–164; BP diastolic 81–99
[2021-11-29] MEDS: PIPERACILLIN/TAZOBACTAM 3.375 GM in SODIUM CHLORIDE 0.9% 50ML 50 ML IV SCH ×5 (00:09→23:14)
[2021-11-29] MEDS: ONDANSETRON HCL INJ 2MG/ML 2ML 2 MG/ML VIAL IV PRN ×2 (04:00)
[2021-11-29] MEDS: Morphine 4mg Syringe 4 MG/ML INJ IV PRN ×3 (04:00→08:23)
[2021-11-29 05:34] LABS: BASOPHILS # (AUTO) 0.1 (0.0-0.1); BASOPHILS % 0.4 % (0.0-1.0); EOSINOPHILS # (AUTO) 0.1 (0.0-0.4); HEMATOCRIT 48.4 % (38.2-49.6); HEMOGLOBIN 16.1 g/dL (14.0-18.0); LYMPHOCYTES # (AUTO) 2.5 (1.0-3.2); LYMPHOCYTES % 18.2 % (18.0-39.1); MEAN CORPUSCULAR HGB CONC 33.3 g/dL (31-35); MEAN CORPUSCULAR VOLUME 99.2 fL (81-99); MONOCYTES # (AUTO) 1.8 (0.2-0.8); MONOCYTES % 13.2 % (4.4-11.3); NEUTROPHILS % 66.7 % (38.7-80.0); PLATELET COUNT 222 x10e3/uL (140-360); RED BLOOD COUNT 4.88 x10e6/uL (4.3-5.7); RED CELL DISTRIBUTION WIDTH 11.8 % (11.7-14.4)
[2021-11-29 05:52] LABS: ALBUMIN 3.2 g/dL (3.5-5.0); ALBUMIN/GLOBULIN RATIO 1.2 (0.8-2.0); ANION GAP 10.5 mmol/L (8-16); CALCIUM 8.1 mg/dL (8.4-10.2); CREATININE, SERUM 0.88 mg/dL (0.72-1.25); POTASSIUM 4.5 mmol/L (3.5-5.1)
[2021-11-29] MEDS: SODIUM CHLORIDE 0.9% 1000ML 1,000 ML IV SCH ×2 (08:24→18:22)
[2021-11-29] MEDS ORDERED: KETOROLAC TROMETHAMINE 30 MG/ML VIAL IV ONE (10:30)
[2021-11-29] MEDS: Morphine 2mg Syringe 2 MG/ML SYR IV PRN ×3 (14:40→23:49)
[2021-11-30] VITALS: BP 142/87
[2021-11-30] MEDS: SODIUM CHLORIDE 0.9% 1000ML 1,000 ML IV SCH (02:45)
[2021-11-30] MEDS: Morphine 2mg Syringe 2 MG/ML SYR IV PRN ×2 (03:50→08:00)
[2021-11-30 04:00] VITALS: BP 138/88
[2021-11-30] MEDS: PIPERACILLIN/TAZOBACTAM 3.375 GM in SODIUM CHLORIDE 0.9% 50ML 50 ML IV SCH (05:08)
[2021-11-30 07:51] VITALS: BP 157/100
[2021-11-30 07:55] VITALS: BP 157/100
[2021-11-30 08:40] LABS: BASOPHILS % 0.3 % (0.0-1.0); EOSINOPHILS # (AUTO) 0.2 (0.0-0.4); EOSINOPHILS % 1.9 % (0.0-6.0); HEMATOCRIT 44.5 % (38.2-49.6); HEMOGLOBIN 14.9 g/dL (14.0-18.0); LYMPHOCYTES # (AUTO) 2.4 (1.0-3.2); LYMPHOCYTES % 27.7 % (18.0-39.1); MEAN CORPUSCULAR HEMOGLOBIN 32.7 pg (28-32); MEAN CORPUSCULAR HGB CONC 33.5 g/dL (31-35); MEAN CORPUSCULAR VOLUME 97.6 fL (81-99); MONOCYTES # (AUTO) 1.1 (0.2-0.8); MONOCYTES % 12.9 % (4.4-11.3); NEUTROPHILS % 56.9 % (38.7-80.0); PLATELET COUNT 214 x10e3/uL (140-360); RED BLOOD COUNT 4.56 x10e6/uL (4.3-5.7); RED CELL DISTRIBUTION WIDTH 11.2 % (11.7-14.4)
[2021-11-30 09:18] LABS: ALBUMIN 3.1 g/dL (3.5-5.0); ALBUMIN/GLOBULIN RATIO 1.1 (0.8-2.0); CALCIUM 8.1 mg/dL (8.4-10.2); CREATININE, SERUM 0.93 mg/dL (0.72-1.25)
[2021-11-30 11:31] VITALS: BP 137/91
== END 2021-11-30 13:05 | disposition home or self-care (01) | DRG 389 ==
LOC: ER 21:54 → ERHOLD 23:26 → MED/SURG3 11-28 01:48
PROVIDERS: ADMIT Internal Medicine; ATTEND Internal Medicine
DX: K56.609 Unspecified intestinal obstruction, unspecified as to partial versus complete obstruction (principal); E87.2 Acidosis; F17.210 Nicotine dependence, cigarettes, uncomplicated; E86.0 Dehydration; K05.219 Aggressive periodontitis, localized, unspecified severity; Z87.442 Personal history of urinary calculi; Z20.822 Contact with and (suspected) exposure to COVID-19
CPT/HCPCS: 36415; 74018; 74177; 80053; 80307; 81001; 82150; 82550; 82553; 83605; 83690; 83735; 84484; 85025; 87040; 94799; 99284; J1885; J2270; J2405; J2543; J3010; J3475; J7030; Q9967; U0002